=== PATIENT | male | born 1940 | race Caucasian/White ===

== ENCOUNTER → 2016-07-27 | Outpatient (CLI) | payer OTHER ==
[2016-05-12 10:58] VITALS: BP 89/52
[2016-08-03 10:10] LABS: PSA TOTAL 2.4 ng/mL (0.0-4.0)
== END ==
LOC: LAB 16:53
PROVIDERS: ATTEND Urology
DX: N42.9 Disorder of prostate, unspecified (principal)
CPT/HCPCS: 36415; 84153; 84154

== ENCOUNTER → 2016-09-01 | Outpatient (CLI) | payer OTHER ==
[2016-05-12 10:58] VITALS: BP 89/52
[2016-09-01 12:51] LABS: BASOPHILS # (AUTO) 0.1 X10^3/uL (0.0-0.1); BASOPHILS % (AUTO) 0.9 % (0.2-1.0); EOSINOPHILS # (AUTO) 0.1 x10^3/uL (0.0-0.2); EOSINOPHILS % (AUTO) 1.3 % (0.9-2.9); HEMATOCRIT 38.4 % (42.0-54.0); LYMPHOCYTES # (AUTO) 2.2 X10^3/uL (1.3-2.9); LYMPHOCYTES % (AUTO) 31.6 % (21.0-51.0); MEAN CORPUSCULAR HEMOGLOBIN 33.2 pg (27.0-34.0); MEAN CORPUSCULAR HGB CONC 33.9 g/dL (33.0-35.0); MEAN CORPUSCULAR VOLUME 97.8 fL (80.0-100.0); MEAN PLATELET VOLUME 7.3 fL (7.4-11.0); MONOCYTES # (AUTO) 0.9 x10^3/uL (0.3-0.8); MONOCYTES % (AUTO) 12.5 % (0.0-13.0); NEUTROPHILS # (AUTO) 3.7 x10^3/uL (2.2-4.8); NEUTROPHILS % (AUTO) 53.7 % (42.0-75.0); PLATELET COUNT 188 X10^3/uL (150.0-450.0); RED BLOOD COUNT 3.93 X10^6/uL (4.7-6.0); RED CELL DISTRIBUTION WIDTH 14.3 % (11.6-16.5); WHITE BLOOD COUNT 6.9 X10^3/uL (3.6-10.0)
[2016-09-01 13:08] LABS: ALANINE AMINOTRANSFERASE 20 Units/L (12-78); ALBUMIN 3.9 g/dL (3.4-5.0); ALKALINE PHOSPHATASE 148 Units/L (46-116); ASPARTATE AMINO TRANSFERASE 15 Units/L (15-37); BLOOD UREA NITROGEN 32 mg/dL (7-18); CALCIUM 9.7 mg/dL (8.5-10.1); CARBON DIOXIDE 31.4 mmol/L (21-32); CHLORIDE 103 mmol/L (98-107); CHOL/HDL RATIO 2.1 (0.0-5.0); CHOLESTEROL 113 mg/dL (0-200); CREATININE 4.36 mg/dL (0.70-1.30); GLUCOSE 104 mg/dL (65-99); HDL CHOLESTEROL 55 mg/dL (40-60); SODIUM 142 mmol/L (136-145); TOTAL PROTEIN 7.4 g/dL (6.4-8.2); TRIGLYCERIDES 42 mg/dL (0-150); TSH (3RD GENERATION) 2.402 uIU/mL (0.358-3.74); eGFR BLACK RACES 17 (>60); eGFR NON BLACK RACES 14 (>60)
== END ==
LOC: LAB 11:53
PROVIDERS: ATTEND Internal Medicine
DX: Z00.00 Encounter for general adult medical examination without abnormal findings (principal); I12.9 Hypertensive chronic kidney disease with stage 1 through stage 4 chronic kidney disease, or unspecified chronic kidney disease; N18.4 Chronic kidney disease, stage 4 (severe); E78.00 Pure hypercholesterolemia, unspecified; I25.10 Atherosclerotic heart disease of native coronary artery without angina pectoris
CPT/HCPCS: 36415; 80053; 80061; 82306; 84443; 85025; 86140

== ENCOUNTER → 2017-03-25 | Outpatient (CLI) | payer OTHER ==
[2016-05-12 10:58] VITALS: BP 89/52
--- NOTE | 2017-03-25 15:12 | RAD ---
History: Preop scalp surgery Study: Chest PA/lateral Findings: PA and left lateral projections of the chest are compared to the study 04/08/2016. Heart an d mediastinal structures are unchanged in appearance. There is overexpansion of the lungs. No acute p rocess is seen. Osseous structures are intact. Impression: Possible COPD and no evidence of acute disease. Reported By:
== END ==
LOC: RAD 13:49
PROVIDERS: ATTEND Plastic Surgery Plastic Surgery Within the Head and Neck
DX: Z01.810 Encounter for preprocedural cardiovascular examination (principal); Z01.811 Encounter for preprocedural respiratory examination; C44.42 Squamous cell carcinoma of skin of scalp and neck
CPT/HCPCS: 71046; 93005; 93010

== ENCOUNTER 2025-01-30 15:59 | Observation (INO) ==
--- NOTE | 2025-01-30 17:10 | DR.EXTPAIN ---
HPI Time seen Time Seen by Provider: 01/30/25 16:12 PCP Primary Care Physician: natasha blair Complaint/Symptoms Chief Complaint Doctor Comments: Agree with statement below. In addition, pt's daughter states that pt had seizure-like activity lasting a couple minutes. Daughter also states that pt is a dialysis pt, has become increasingly weak and confused. She states he was ~10 feet away from his recliner, and has been unable to ambulate autonomously for a couple weeks, believes pt tried to get up on his own, either had a seizure and fell to the ground, or had a fall and then had a seizure. Had urinary incont by the time daughter got to him. Pt groggy on exam, waking to painful stim, denies pain at this time. Chief Complaint:: Patient brought in [facility] they stated when they got there he was laying on the floor on his right side shivering cold he would only grimise when he was touched. Asked patient if he was having any pain he states all over asked patient if that was new or chronic he doesnt answer. Daughter states she just walked out the room for 10 min and when she came back he was on the floor not responding good to her but was breathing. COVID-19 Coronavirus risk:travel/contact w/high risk person: No Has patient experienced Coronavirus symptoms: No Source History Provided: EMS Mode of arrival Mode of Arrival: EMS Timing Onset of Chief Complaint: 01/30/25 PMH PMH Past Medical History: Yes Past Medical History: Anemia, Dialysis, Renal Disease and Cancer Past Surgical History: Yes Surgical History: Appendectomy, Cholecystectomy and Other Family History History of Family Medical Conditions: Yes Family Medical History: [place] Social History Does patient currently use any type of tobacco product: No Have you used tobacco products in the last 12 months: No Type of Tobacco Use: None Does any household member use tobacco: No Alcohol Use: None Do you use any recreational Drugs:: No Lives With: Family Lives Where: Home Travel Risk Coronavirus risk:travel/contact w/high risk person: No Has patient experienced Coronavirus symptoms: No Infectious screening In the last 2 months have you had wt loss of >10#?: NO Have you had fever, night sweats or hemotysis?: No Have you traveled outside the country in the last 6 months?: No Isolation: Standard ROS Review of Systems Neurological: Seizure All Other Systems: Reviewed and Negative PE Vital Signs Vitals: Vital Signs Temperature 97.7 F Pulse Rate 60 Pulse Rate 60 Pulse Rate 60 Pulse Rate 67 Respiratory Rate 14 Blood Pressure [Left Arm] 153/70 Blood Pressure 145/65 Blood Pressure 157/71 O2 Sat by Pulse Oximetry 99 O2 Sat by Pulse Oximetry 99 O2 Sat by Pulse Oximetry 96 O2 Sat by Pulse Oximetry 99 General Limitations: No Limitations General Appearance: Lethargic and Obtunded Head Head Exam: Normal Inspection Eyes Eye exam: Normal Appearance ENT ENT Exam: Normal Exam Neck Neck Exam: Normal Inspection Chest Chest Inspection: Normal Inspection Respiratory Respiratory Exam: Normal Lung Sounds Bilat Cardiovascular Cardiovascular Exam: Regular Rate and Normal Rhythm Abdominal Exam Abdominal Exam: Normal Inspection, Normal Bowel Sounds and Soft Extremities Extremities Exam: Normal Inspection Back Back Exam: Normal Inspection Neurological Neurological Exam: Alert, Oriented X3 and CN II-XII Intact Psychiatric Psychiatric Exam: Normal Affect and Normal Mood Skin Skin Exam: Warm, Dry, Intact and Normal Color ROR Labs Reviewed 01/30/25 17:43 01/30/25 17:43 Laboratory: WBC 5.4 X10^3/uL (3.6-10.0) 01/30/25 17:43 RBC 3.37 X10^6/uL (4.7-6.0) L 01/30/25 17:43 Hgb 10.3 g/dL (13.5-18.0) L 01/30/25 17:43 Hct 30.9 % (42.0-54.0) L 01/30/25 17:43 MCV 91.9 fL (80.0-100.0) 01/30/25 17:43 MCH 30.5 pg (27.0-34.0) 01/30/25 17:43 MCHC 33.2 g/dL (33.0-35.0) 01/30/25 17:43 RDW 16.1 % (11.6-16.5) 01/30/25 17:43 Plt Count 283 X10^3/uL (150.0-450.0) 01/30/25 17:43 MPV 7.4 fL (7.4-11.0) 01/30/25 17:43 Neut % (Auto) 55.3 % (42.0-75.0) 01/30/25 17:43 Lymph % (Auto) 22.6 % (21.0-51.0) 01/30/25 17:43 [place] % (Auto) 12.8 % (0.0-13.0) 01/30/25 17:43 Eos % (Auto) 6.6 % (0.9-2.9) H 01/30/25 17:43 Baso % (Auto) 2.7 % (0.2-1.0) H 01/30/25 17:43 Neut # (Auto) 3.0 x10^3/uL (2.2-4.8) 01/30/25 17:43 Lymph # (Auto) 1.2 X10^3/uL (1.3-2.9) L 01/30/25 17:43 [place] # (Auto) 0.7 x10^3/uL (0.3-0.8) 01/30/25 17:43 Eos # (Auto) 0.4 x10^3/uL (0.0-0.2) H 01/30/25 17:43 Baso # (Auto) 0.1 X10^3/uL (0.0-0.1) 01/30/25 17:43 Absolute Nucleated RBC 0.0 /100WBC 01/30/25 17:43 PT 14.6 SECONDS (11.8-14.3) 01/30/25 17:43 INR Target Range - 01/30/25 17:43 INR 1.13 (0.8-1.3) 01/30/25 17:43 APTT 36.1 SECONDS (22.9-36.5) 01/30/25 17:43 PTT Comment - 01/30/25 17:43 Sodium 142 mmol/L (136-145) 01/30/25 17:43 Corrected Sodium TNP 01/30/25 17:43 Potassium 4.0 mmol/L (3.5-5.1) 01/30/25 17:43 Chloride 101 mmol/L (98-107) 01/30/25 17:43 Carbon Dioxide 33.5 mmol/L (21-32) H 01/30/25 17:43 BUN 15 mg/dL (7-18) 01/30/25 17:43 Creatinine 3.33 mg/dL (0.70-1.30) H 01/30/25 17:43 Est GFR (MDRD) Af Amer 23 (>60) L 01/30/25 17:43 Est GFR (MDRD) Non-Af 19 (>60) L 01/30/25 17:43 Glucose 85 mg/dL (65-99) 01/30/25 17:43 Calcium 9.4 mg/dL (8.5-10.1) 01/30/25 17:43 Corrected Calcium 10.0 mg/dL (8.5-10.1) 01/30/25 17:43 Magnesium 2.0 mg/dL (2.0-2.9) 01/30/25 17:43 Total Bilirubin 0.70 mg/dL (0.2-1.0) 01/30/25 17:43 AST 31 Units/L (15-37) 01/30/25 17:43 ALT 28 Units/L (12-78) 01/30/25 17:43 Alkaline Phosphatase 205 Units/L (46-116) H 01/30/25 17:43 Creatine Kinase 58 Units/L (39-308) 01/30/25 17:43 Troponin I High Sens 15.5 ng/L (4.0-60.0) 01/30/25 17:43 Total Protein 7.4 g/dL (6.4-8.2) 01/30/25 17:43 Albumin 3.3 g/dL (3.4-5.0) L 01/30/25 17:43 Globulin 4.1 g/dL (2.5-4.5) 01/30/25 17:43 Albumin/Globulin Ratio 0.8 Ratio (1.1-2.1) L 01/30/25 17:43 Opioid Opioid Risk Tool Age (Damian box if 16-45): No History of Preadolescent Sexual Abuse: No Total: 0 Total Score Risk Category: Low Risk Copyright: Jacek CANCINO predicting aberrant behaviors Discharge Plan Diagnosis Discharge Problem: Adult failure to thrive, ESRD (end stage renal disease) on dialysis, New onset seizure Altered mental status Qualifiers: Altered mental status type: unspecified Qualified Code(s): R41.82 - Altered mental status, unspecified Discharge Plan Patient Disposition: 09 ADMITTED INPATIENT Condition: Stable Prescriptions: No Action alprazolam 0.5 mg tablet 0.5 mg PO BID MDD 2 PRN (Reason: anxiety) 30 Days Qty: 60 0RF simvastatin 40 mg tablet 40 mg PO QPM Qty: 90 2RF oxycodone-acetaminophen 10-325 mg tablet 1 tab PO Q4H MDD 6 tablets per 24 hours PRN (Reason: pain) 30 Days Qty: 150 0RF lidocaine-prilocaine 2.5-2.5 % cream topical Patient Comments: [NO ORIGINAL SIG] allopurinol 100 mg tablet 100 mg PO QDAY tamsulosin 0.4 mg capsule 0.4 mg PO BID sevelamer carbonate 800 mg tablet 800 mg PO TID Eliquis 2.5 mg tablet 2.5 mg PO BID midodrine 5 mg tablet 5 mg PO BID furosemide 80 mg tablet 80 mg PO BID Health Concerns: Post Hospitalization: new medications and changes needed to prevent readmission or further decline. Pt educated and given instructions on all concerns. Plan of Treatment: Continue with present treatment and follow up plan. Pt is to keep follow up appointment as instructed and take medications as ordered. Orders to Discharge Patient Discharge Orders: Transfer (Routine); Ordered 01/30/25 Ordered By: Gabriele Rubi Follow ups/Referrals Follow ups/Referrals: NFD,None [Primary Care Provider] - 3 days Instructions Stand Alone Forms: Find Help Web Site, Post Hospital Follow Up Care Print Language: BELIZEAN Provider Note Additional Notes Family requesting pt be transitioned to hospice, pt and family wanting to withdraw from dialysis and withdraw care. Spoke with Dr Maddox who agrees to admit to help make the transition to [id number].
[2025-01-30 18:02] LABS: MEAN PLATELET VOLUME 7.4 fL (7.4-11.0); RED CELL DISTRIBUTION WIDTH 16.1 % (11.6-16.5)
[2025-01-30 18:06] LABS: INR 1.13 (0.8-1.3)
[2025-01-30 18:13] LABS: COR CA(FOR HYPOALB) 10.0 mg/dL (8.5-10.1); CREATININE 3.33 mg/dL (0.70-1.30); eGFR NON BLACK RACES 19 (>60)
--- NOTE | 2025-01-30 18:19 | EKG ---
Test Reason : Seizure Blood Pressure : */* mmHG Vent. Rate : 63 BPM Atrial Rate : 288 BPM P-R Int : * ms QRS Dur : 72 ms QT Int : 434 ms P-R-T Axes : * 47 70 degrees QTc Int : 444 ms Ventricular-paced rhythm Abnormal ECG When compared with ECG of 05-JAN-2025 03:32, Vent. rate has decreased BY 29 BPM back in afib Confirmed by Odin Smith MD ([id number]) on 01/31/2025 7:21:03 AM Referred By: Confirmed By: Odin Smith MD
--- NOTE | 2025-01-30 18:30 | CT ---
EXAM: CT HEAD WITHOUT CONTRAST HISTORY: seizure, trauma; Patient brought in by [facility] they stated when they got there he was laying on the floor on his right side shivering cold he would only grimise when he was touched. Asked patient if he was having any pain he states all over asked patient if that was new or chronic he doesnt answer. Daughter states she just walked out the room for 10 min and when she came back he was on the floor not responding good to her but was breathing. COMPARISON: None. TECHNIQUE: Axia l CT images were obtained through the brain without contrast. All CT scans at this facility use dose modulation, iterative reconstruction, and/or weight based dosing when appropriate to reduce radiation dose to as low as reasonably achievable. FINDINGS: BRAIN: There is moderate diffuse atrophy with proportionate enlargement of the cerebral sulci and ventricular system. Decreased attenuation in the periventricular white matter is compatible with but not specific for chronic small vessel ischemic changes. No evidence of acute infarct intra or extraaxial hemorrhage mass effect or hydrocephalus. CALVARIUM: Previous surgery with previous occipital craniotomy. ADDITIONAL FINDINGS: The visualized paranasal sinuses and mastoid air cells are clear. Orbits are grossly unremarkable. IMPRESSION: No evidence of acute intracranial process. THIS IS AN ELECTRONICALLY VERIFIED FINAL REPORT 01/30/2025 6:24 PM - Electronically signed by Nestor Adkins MD
--- NOTE | 2025-01-30 18:30 | CT ---
EXAM: CT LUMBAR SPINE WITHOUT CONTRAST HISTORY: fall; Patient brought in by [facility] they stated when they got there he was laying on the floor on his right side shivering cold he would only grimise when he was touched. Asked patient if he was having any pain he states all over asked patient if that was new or chronic he doesnt answer. Daughter states she just walked out the room for 10 min and when she came back he was on the floor not responding good to her but was breathing. . COMPARISON: None. TECHNIQUE: Axial CT images were obtained through the lumbar spine without IV contrast. Coronal and sagittal reformations were post processed. All CT scans at this facility use dose modulation, iterative reconstruction, and/or weight based dosing when appropriate to reduce radiation dose to as low as reasonably achievable. FINDINGS: SPINE: Moderate multilevel degenerative disc disease is noted. Curvature vertebral body heights and alignment are within normal limits. SURROUNDING SOFT TISSUES: Right pleural effusion. Trace left pleural fluid IMPRESSION: No acute injury seen in the lumbar spine. Multilevel degenerative changes THIS IS AN ELECTRONICALLY VERIFIED FINAL REPORT 01/30/2025 6:25 PM - Electronically signed by Nestor Adkins MD
--- NOTE | 2025-01-30 20:48 | CT ---
EXAM: CT OF THE PELVIS WITHOUT CONTRAST HISTORY: Pain. TECHNIQUE: Spiral axial CT images are obtained through the pelvis, hips, and coccygeal regions. Sagittal and coronal reformatted images are reconstructed. COMPARISON: None available. FINDINGS: There is severe diffuse osteopenia (possible osteoporosis). There is no acute fracture seen. No focal bony erosion or sclerosis is seen. No joint subluxation or dislocation is seen. There is mild osteoarthritis of both hips marked by joint space narrowings. There is no evidence for avascular necrosis of the hips. L4-S1: Multilevel DDD with posterior disc bulges +/- HNP's (projecting 7.7 mm AP at L4/5 and 7.8 mm AP at L5/S1) encroaching upon the anterior thecal sac and lateral recesses with suggestion of impingement of the L5 and S1 nerve roots, respectively. Sagittal image 60; axial image 3-20. No radiodense soft tissue abnormality or foreign body is noted. There is severe aortoiliac and femoral atherosclerosis. There is a large (approximately 13.2 cm CC by 5.1 cm AP by 7.9 cm transverse) right inguinal hernia containing uncomplicated loops of stool-filled distal small bowel loops, cecum, and proximal ascending colon. There is prostamegaly (5.7 cm transverse by 5.3 cm AP by 6.2 cm CC) in keeping with BPH; concomitant occult neoplastic disease not excluded. There is mildly thickened appearance of incompletely distended urinary bladder wall (6.9 mm) which may represent sequela of incomplete bladder distention and/or chronic muscle wall hypertrophy secondary to chronic partial outlet obstruction; DDx includes cystitis in the appropriate clinical setting. Clinical correlation is advised. IMPRESSION: 1. No acute fracture or joint subluxation/dislocation seen. 2. Severe diffuse osteopenia (possible osteoporosis). 3. L4-S1: Multilevel DDD with posterior disc bulges +/- HNP's (projecting 7.7 mm AP at L4/5 and 7.8 mm AP at L5/S1) encroaching upon the anterior thecal sac and lateral recesses with suggestion of impingement of the L5 and S1 nerve roots, respectively. Sagittal image 60; axial image 3-20. 4. Mild osteoarthritis of both hips. 5. Prostamegaly (5.7 cm transverse by 5.3 cm AP by 6.2 cm CC) in keeping with BPH; concomitant occult neoplastic disease not excluded. 6. Mildly thickened appearance of incompletely distended urinary bladder wall (6.9 mm) which may represent sequela of incomplete bladder distention and/or chronic muscle wall hypertrophy secondary to chronic partial outlet obstruction; DDx includes cystitis in the appropriate clinical setting. Clinical correlation is advised. 7. Large (approximately 13.2 cm CC by 5.1 cm AP by 7.9 cm transverse) right inguinal hernia containing uncomplicated loops of stool-filled distal small bowel loops, cecum, and proximal ascending colon. THIS IS AN ELECTRONICALLY VERIFIED FINAL REPORT 01/30/2025 8:45 PM - Electronically signed by Mauricio Yee MD
[2025-01-30] MEDS ORDERED: TYLENOL 325 MG TAB PO PRN (21:39)
[2025-01-30] MEDS ORDERED: ZOFRAN TAB 4 MG PO PRN (21:39)
[2025-01-30] MEDS ORDERED: ZOFRAN INJ 4 MG VIAL IVP PRN (21:39)
[2025-01-30] MEDS ORDERED: ULTRAM PO PRN (21:39)
[2025-01-30] MEDS ORDERED: NORCO 5/325 MG TAB PO PRN (21:39)
[2025-01-30 22:25] VITALS: BMI 23.1
[2025-01-30] MEDS: NS 1,000 ML IV 1,000 ML IV SCH (22:46)
[2025-01-30] MEDS: ZOCOR TAB 40 MG PO SCH (22:46)
[2025-01-30] MEDS: LASIX PO SCH (22:46)
[2025-01-30] MEDS: PROAMATINE PO SCH (22:46)
[2025-01-30] MEDS: FLOMAX PO SCH (22:46)
[2025-01-30] MEDS: ELIQUIS PO SCH (22:46)
[2025-01-30] MEDS: CONSULT PHARMACY - POTASSIUM & MAGNESIUM XX SCH (22:47)
[2025-01-30] MEDS: MORPHINE SULFATE INJ 2 MG INJ IVP PRN (22:47)
[2025-01-30] MEDS: RENAGEL PO SCH (22:47)
[2025-01-30] MEDS: ALPRAZOLAM ODT PO PRN (22:47)
[2025-01-31 00:17] VITALS: BP 174/77; PULSE 60; TEMP 97.9; O2SAT 96
--- NOTE | 2025-01-31 06:34 | RAD ---
EXAM: CHEST, 1 VIEW HISTORY: Shortness of breath COMPARISON: 01/10/2025 FINDINGS: Temporary hemodialysis catheter overlying the right hemithorax is again observed with the tip in the cavoatrial junction. The cardiac silhouette is unremarkable. Developing infiltrate in the right infrahilar region is observed. Chronic interstitial lung changes of the left hemithorax are observed.. The bony thorax is unremarkable. IMPRESSION: Developing infiltrate in the right lower lobe. THIS IS AN ELECTRONICALLY VERIFIED FINAL REPORT 01/31/2025 6:31 AM - Electronically signed by Wade Guerin MD
[2025-01-31] MEDS: ZYLOPRIM PO SCH (08:47)
--- NOTE | 2025-01-31 09:47 | DR.H&P ---
H&P History & Physical for Day of: H&P Date: 01/31/25 Chief Complaint Chief Complaint: fall, seizure like activity History of Present Illness History of Present Illness: Patient is a 84-year-old male with a past medical history of end-stage renal disease on dialysis, skin cancer, bladder cancer, atrial fibrillation, anemia and BPH presented after being found on the floor and having seizure-like activity. Patient went for dialysis yesterday for about an hour and could not tolerate sitting there. He came home and was found on the floor and then was noted to have generalized convulsions. He has no history of seizure disorder. Patient has been deteriorating for the past month with generalized weakness and not able to tolerate dialysis sessions. He was able to ambulate with a walker but for the past 4 weeks has not been able to do that. He is mostly bedbound. He has said recently that he does not want to continue doing dialysis. He has multiple bruises from recurrent falls. ER workup showed elevated BUN/creatinine. CT brain, CT lumbar and pelvic were negative for any acute changes. Chest x-ray showed developing right lower lobe infiltrate. Family prefers patient to do inpatient hospice or go to a hospice house. They are not able to take care of patient at home with hospice. [facility] has been contacted. Patient does not want to do dialysis anymore. Labs/imaging reviewed: - WBC 5.4 hemoglobin 10.3 potassium 4.0 creatinine 3.33 - Imaging reviewed Plan: Admit to [facility]. Consult hospice for further options including hospice house in [place]. Start comfort care measures including pain control and anxiolytics. Stop IV medications. Stop any further lab draws. Family would like to keep the patient comfortable. Continue home medications as appropriate. Time spent for clinical assessment, reviewing labs/imaging, physical exam, decision making and documentation greater than 45 mins. Past Medical History Past Medical History: Anemia, Dialysis, Renal Disease and Cancer Additional Medical History: Renal Cancer 01/04, A Fib Past Surgical History Surgical History: Abdominal Surgery, Appendectomy, Cholecystectomy, Ortho Surgery and Other Additional Surgical History: Nephrectomy 12/31/15 ([place]), Fistula Placement LUE, Hemorrhoidectomy, Hernia repair Family History Family Medical History: [place] Social History Does patient currently use any type of tobacco product: No Have you used tobacco products in the last 12 months: No Type of Tobacco Use: None Does any household member use tobacco: No Alcohol Use: Other Drug Use: None Medications Home Medications: Home Medications Medication Instructions Recorded Confirmed Type allopurinol 100 mg tablet 100 mg PO QDAY 01/31/2501/20 History apixaban 2.5 mg tablet (Eliquis) 2.5 mg PO BID 5 01/31/25 History furosemide 80 mg tablet 80 mg PO BID 01/31/25 History megestrol 40 mg tablet 40 mg PO QDAY 01/31/2501/31 History midodrine 5 mg tablet 5 mg PO BID 01/31/25 5 History ondansetron HCl 4 mg tablet 4 mg PO Q8H PRN 01/31/25 1 04/02/24 History quetiapine 25 mg tablet 25 mg PO BID 01/31/25 History simvastatin 40 mg tablet 40 mg PO QPM 01/31/25 History tamsulosin 0.4 mg capsule 0.8 mg PO QDAY 01/31/2501/20 History Allergies Allergies Allergy/AdvReac Type Severity Reaction Status Date / Time No Known Drug Allergies Allergy Verified 01/30/25 16:18 Labs 01/30/25 17:43 01/30/25 17:43 Labs: Laboratory WBC 5.4 X10^3/uL (3.6-10.0) 01/30/25 17:43 RBC 3.37 X10^6/uL (4.7-6.0) L 01/30/25 17:43 Hgb 10.3 g/dL (13.5-18.0) L 01/30/25 17:43 Hct 30.9 % (42.0-54.0) L 01/30/25 17:43 MCV 91.9 fL (80.0-100.0) 01/30/25 17:43 MCH 30.5 pg (27.0-34.0) 01/30/25 17:43 MCHC 33.2 g/dL (33.0-35.0) 01/30/25 17:43 RDW 16.1 % (11.6-16.5) 01/30/25 17:43 Plt Count 283 X10^3/uL (150.0-450.0) 01/30/25 17:43 MPV 7.4 fL (7.4-11.0) 01/30/25 17:43 Neut % (Auto) 55.3 % (42.0-75.0) 01/30/25 17:43 Lymph % (Auto) 22.6 % (21.0-51.0) 01/30/25 17:43 [place] % (Auto) 12.8 % (0.0-13.0) 01/30/25 17:43 Eos % (Auto) 6.6 % (0.9-2.9) H 01/30/25 17:43 Baso % (Auto) 2.7 % (0.2-1.0) H 01/30/25 17:43 Neut # (Auto) 3.0 x10^3/uL (2.2-4.8) 01/30/25 17:43 Lymph # (Auto) 1.2 X10^3/uL (1.3-2.9) L 01/30/25 17:43 [place] # (Auto) 0.7 x10^3/uL (0.3-0.8) 01/30/25 17:43 Eos # (Auto) 0.4 x10^3/uL (0.0-0.2) H 01/30/25 17:43 Baso # (Auto) 0.1 X10^3/uL (0.0-0.1) 01/30/25 17:43 Absolute Nucleated RBC 0.0 /100WBC 01/30/25 17:43 PT 14.6 SECONDS (11.8-14.3) 01/30/25 17:43 INR Target Range - 01/30/25 17:43 INR 1.13 (0.8-1.3) 01/30/25 17:43 APTT 36.1 SECONDS (22.9-36.5) 01/30/25 17:43 PTT Comment - 01/30/25 17:43 Sodium 142 mmol/L (136-145) 01/30/25 17:43 Corrected Sodium TNP 01/30/25 17:43 Potassium 4.0 mmol/L (3.5-5.1) 01/30/25 17:43 Chloride 101 mmol/L (98-107) 01/30/25 17:43 Carbon Dioxide 33.5 mmol/L (21-32) H 01/30/25 17:43 BUN 15 mg/dL (7-18) 01/30/25 17:43 Creatinine 3.33 mg/dL (0.70-1.30) H 01/30/25 17:43 Est GFR (MDRD) Af Amer 23 (>60) L 01/30/25 17:43 Est GFR (MDRD) Non-Af 19 (>60) L 01/30/25 17:43 Glucose 85 mg/dL (65-99) 01/30/25 17:43 Calcium 9.4 mg/dL (8.5-10.1) 01/30/25 17:43 Corrected Calcium 10.0 mg/dL (8.5-10.1) 01/30/25 17:43 Magnesium 2.0 mg/dL (2.0-2.9) 01/30/25 17:43 Total Bilirubin 0.70 mg/dL (0.2-1.0) 01/30/25 17:43 AST 31 Units/L (15-37) 01/30/25 17:43 ALT 28 Units/L (12-78) 01/30/25 17:43 Alkaline Phosphatase 205 Units/L (46-116) H 01/30/25 17:43 Creatine Kinase 58 Units/L (39-308) 01/30/25 17:43 Troponin I High Sens 15.5 ng/L (4.0-60.0) 01/30/25 17:43 Total Protein 7.4 g/dL (6.4-8.2) 01/30/25 17:43 Albumin 3.3 g/dL (3.4-5.0) L 01/30/25 17:43 Globulin 4.1 g/dL (2.5-4.5) 01/30/25 17:43 Albumin/Globulin Ratio 0.8 Ratio (1.1-2.1) L 01/30/25 17:43 Review of Systems Constitutional: Weakness Eyes: No Symptoms Reported ENT: No Symptoms Reported Respiratory: No Symptoms Reported Cardiovascular: No Symptoms Reported Gastrointestinal: No Symptoms Reported Genitourinary: No Symptoms Reported Musculoskeletal: Back Pain and Leg Pain Skin: Bruising Neurological: Seizures Physical Exam Vital Signs: Vital Signs Respiratory Rate 19 Respiratory Rate 19 Respiratory Rate 19 Oriented: Unable to test Throat: Dry Respiratory: Diminished Throughout Cardiovascular: Normal Auscultation: Bowel Sounds: Normal Palpation: Normal Tenderness: Normal Skin: Decreased [place], Bruising and Ecchymosis Musculoskeletal: Motor Deficit Psychiatric: Normal Mood Description: Calm Affect: Normal Speech Pattern: Unclear and Delayed Assessment/Plan (1) Adult failure to thrive: Status: Acute (2) ESRD (end stage renal disease) on dialysis: Status: Chronic (3) New onset seizure: Status: Acute (4) Weakness: Status: Acute Review H&P Reviewed: Yes Patient was examined?: Yes
[2025-01-31 12:42] VITALS: RESP 18
[2025-01-31] MEDS ORDERED: MORPHINE SULFATE ORAL SOLN CONC PO PRN (12:49)
== END 2025-01-31 13:15 | disposition hospice, inpatient (51) ==
LOC: MED/SURG 15:59 → ER 15:59 → MED/SURG 21:21
PROVIDERS: ADMIT Family Medicine; ATTEND Family Medicine
DX: Z79.899 Other long term (current) drug therapy; D64.89 Other specified anemias; Z99.2 Dependence on renal dialysis; K44.9 Diaphragmatic hernia without obstruction or gangrene; R41.82 Altered mental status, unspecified; Z66 Do not resuscitate; J90 Pleural effusion, not elsewhere classified; I48.91 Unspecified atrial fibrillation; R06.02 Shortness of breath; R94.4 Abnormal results of kidney function studies; M19.90 Unspecified osteoarthritis, unspecified site; W18.39XA Other fall on same level, initial encounter; Z59.868 Other specified financial insecurity; M51.370 Other intervertebral disc degeneration, lumbosacral region with discogenic back pain only; N18.6 End stage renal disease; R53.1 Weakness; M85.80 Other specified disorders of bone density and structure, unspecified site; R56.9 Unspecified convulsions; R94.31 Abnormal electrocardiogram [ECG] [EKG]; Z79.01 Long term (current) use of anticoagulants